=== PATIENT | female | born 1980 | race Caucasian/White ===

== ENCOUNTER 2023-06-09 18:15 | Emergency (ER) | payer SELFPAY ==
[2023-06-09] VITALS (16 sets, daily range): BP systolic 141–155; BP diastolic 105–110; PULSE 68–86; RESP 13–20; O2SAT 95–100
--- NOTE | ~2023-06-09 | XR_ITS ---
EXAMINATION: XR chest 1V portable DATE: 06/09/2023 20:48 INDICATION: Weakness. Decreased appetite. TECHNIQUE: A single frontal view of the chest was obtained. COMPARISON: None. FINDINGS: The chest demonstrates clear lungs without pneumonia, pleural effusion, or pneumothorax. Th e heart size is normal. IMPRESSION: 1. No acute cardiopulmonary disease. Reviewed, dictated and finalized at location E.
--- NOTE | ~2023-06-09 | CT_ITS ---
EXAMINATION: CT abdomen pelvis wo con DATE: 06/09/2023 22:52 INDICATION: Left lower quadrant pain TECHNIQUE: Computed tomography (CT) of the abdomen and pelvis was performed without intravenous contr ast. The dose-length product (DLP) was 1100.89 mGy-cm. Automated exposure control and iterative recon struction technique were employed. COMPARISON: None FINDINGS: Minimal dependent atelectasis is present in the lung bases. The heart size is normal. The l iver is diffusely low in attenuation when compared with the spleen, consistent with hepatic steatosis . There are changes of cholecystectomy. The spleen, pancreas, and adrenal glands are normal. The kidn eys are unremarkable. No pathologically enlarged abdominal or pelvic lymph nodes are identified. No f ree intraperitoneal gas or evidence of bowel obstruction. A moderate volume of colonic stool is prese nt. Changes of appendectomy are noted. There is mild lumbar spondylosis. IMPRESSION: 1. No CT correlate for the patient's symptoms. 2. Diffuse hepatic steatosis. Reviewed, dictated and finalized at location A.
--- NOTE | 2023-06-09 18:21 | ECG_ITS ---
Measurements Intervals [place] Rate: 80 P: 22 PA: 130 QRS: 13 QRSD: 89 T: 36 QT: 382 QTc: 441 Interpretive Statements SINUS RHYTHM NONSPECIFIC T-WAVE ABNORMALITY ABNORMAL ECG NO PREVIOUS ECG AVAILABLE FOR COMPARISON Electronically Signed On 06-10-2023 10:03:46 CDT by Derek Sutton M.D.
[2023-06-09] MEDS: ONDANSETRON INJ 4 MG/2 ML VIAL IV PUSH (21:08)
[2023-06-09] MEDS: HYDROmorphone HCL INJ (*CRX) 1 MG/ML SYR 0.5 MG IV PUSH (21:08)
[2023-06-09] MEDS: SODIUM CHLORIDE 0.9% IV 1,000 ML 999 ML IV CONT (21:11)
[2023-06-09 21:23] LABS: Basophils Absolute Auto 0.1 K/mm3 (0.0-0.1); Basophils Percent Auto 0.7 % (0.2-1.2); Eosinophils Absolute Auto 0.2 K/mm3 (0-0.3); Hematocrit 37.2 % (37.0-47.0); Hemoglobin 12.6 g/dL (12.0-15.0); Immature Granulocyte Absolute 0.02 K/mm3 (0.00-0.031); Immature Granulocyte Percent A 0.3 % (0-0.5); Lymphocytes Absolute Auto 3.06 K/mm3 (0.9-3.2); Lymphocytes Percent Auto 41.4 % (18.3-44.2); Mean Corpuscular HGB Conc 33.9 g/dl (32-36); Mean Corpuscular Hemoglobin 29.3 pg (26-34); Mean Corpuscular Volume 86.5 fl (80-100); Mean Platelet Volume 10.9 fl (7.4-10.4); Monocytes Absolute Auto 0.8 K/mm3 (0.1-0.6); Monocytes Percent Auto 11.1 % (2.6-8.5); Neutrophils Absolute Auto 3.2 K/mm3 (1.3-6.7); Neutrophils Percent Auto 43.5 % (45.5-73.1); Platelet Count Result 311 k/mm3 (150-375); White Blood Count 7.4 K/mm3 (4.5-10.0)
[2023-06-09 21:32] LABS: Lactic Acid Reflex 1.3 mmol/L (0.7-2.0)
[2023-06-09 21:33] LABS: Prothrombin Time 13.9 Seconds (11.1-14.7)
[2023-06-09 21:34] LABS: Alanine Aminotransferase 26 U/L (6-35); Albumin Level 4.9 g/dL (3.5-5.1); Alkaline Phosphatase 90 U/L (38-126); Anion Gap 13 mmol/L (8-16); Aspartate Amino Transferase 30 U/L (14-36); Bilirubin,Total 0.5 mg/dL (0.2-1.3); Blood Urea Nitrogen 11 mg/dL (7-17); Calcium 9.7 mg/dL (8.4-10.2); Carbon Dioxide 26 mmol/L (22-30); Chloride 102 mmol/L (98-107); Creatine Kinase 53 U/L (30-135); Estimated CRCL calculation 105 ml/min; Estimated Glomerular Filt Rate > 60; Glucose 103 mg/dL (65-110); Lipase 109 U/L (23-300); Magnesium 2.3 mg/dL (1.6-2.3); Partial Thromboplastin Time 27.7 SECONDS (22.3-36.8); Potassium 3.3 mmol/L (3.4-5.0); Sodium 141 mmol/L (137-145)
--- NOTE | 2023-06-09 21:46 | PC.NURSE ---
This RN got pt authorization to contact [facility] for pt record transfer per EDP Dr. Gonzales request.
[2023-06-09 21:58] LABS: Appearance Urine Cloudy (Clear); Bacteria Urine None Seen /hpf; Bilirubin Urine Negative (Negative); Color Urine Yellow (Yellow); Glucose Urine UA Negative (Negative); Ketones Urine Negative (Negative); Leukocyte Esterase Ur 2+ LEU/UL (Negative); Need Manual Microscopic Reviewed; Nitrate Urine Negative (Negative); Non Pathogenic Casts 0-2; Protein Urine 1+ mg/dL (Negative); Specific Grav Ur 1.027 (1.001-1.035); Squamous Epithelial Cell Urine Many /hpf (Few); Urobilinogen Urine 0.2 mg/dL (<2.0); WBC Urine 21-50 /hpf
--- NOTE | 2023-06-09 21:58 | ED.GENADULT ---
HPI - General Adult General Chief complaint: Weakness Stated complaint: weakness/ abd pain Time Seen by Provider: 06/09/23 19:50 History of Present Illness HPI narrative: This is a 43-year-old female presenting ED with chief complaint of abdominal pain. 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 She then left [facility] because a family member was having a child. Over the last 4 days since she left [facility] she says she has been having increasing abdominal pain, decreased appetite and generalized weakness. The pain does patient describes her pain as a cramping abdominal pain on the left side that is constant, worsening and feels like her colitis from last week. Patient has been taking Motrin and Tylenol with no relief. I asked the patient why she did not return to [facility] and she stated that she was not comfortable going back there after leaving [facility] and would rather pursue care here. Related Data Allergies Allergy/AdvReac Type Severity Reaction Status Date / Time Penicillins Allergy Hives Verified 06/09/23 21:07 [facility] Surgical History Surgical History Hx of cholecystectomy Exam Narrative: APPEARANCE: No apparent distress. Head: atraumatic. EYES: EOMI, NOSE: Atraumatic NECK: Trachea midline RESPIRATORY: No increased rate of breathing, clear to auscultation CARDIOVASCULAR: RRR, ABDOMINAL: Tender on the left side with no guarding or rebound, no CVA tenderness MUSCULOSKELETAl: No obvious deformities NEURO: Alert. Moving 4/4 extremities SKIN:: Warm, dry. Normal color PSYCHIATRIC: Normal affect Course Vital Signs Vital signs: Vital Signs Pulse Rate 79 06/09/23 18:20 Respiratory Rate 18 06/09/23 18:20 Blood Pressure 155/110 H 06/09/23 18:20 Pulse Oximetry 99 06/09/23 18:20 Pulse Rate 78 06/09/23 20:10 Respiratory Rate 20 06/09/23 20:08 Blood Pressure 155/107 H 06/09/23 20:08 Pulse Oximetry 100 06/09/23 20:08 Procedures EJ/Peripheral Line Arm R: EJ/Peripheral Line Date: 06/09/23 Time Out Performed: Yes Skin Cleansed in Sterile Fashion: Yes Ultrasound Guided: Yes Size (gauge): 20 IV Secured and Dressing Applied: Yes Patient Tolerated Procedure: well Additional Comments: 20 gauge IV placed by MD under ultrasound guidance due to diff IV access Medical Decision Making MDM Narrative Medical decision making narrative: -Presentation: 43-year-old female with recent history of colitis presenting for abdominal pain. 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 -External Chart Review: Review of requested records from [facility] of her CT scan, colonoscopy and EGD results. -Hx from independent Sources: friend at bedside -Independent interpretation of studies: laboratory studies normal. UA indicative of infection. Patient be discharged on Keflex. Viral swabs negative. Chest x-ray unremarkable. Independent EKG interpretation: Rhythm [sinus], Rate [80], [place] -[normal], [place] -[normal], QRS [narrow], QTC [normal], T waves -[negative for concerning inversions], ST Segments - [Negative for concerning elevations] Final interpretations: [Normal Sinus Rhythm] CT abdomen pelvis was delayed due to STAT RAD and patient got tired of waiting and decided she would like to leave and follow up outpatient. -Discussion of Management/Consultants: [facility] house designer and records. there was some confusion when requested the records from [facility] but eventually were able to obtain CT scan and colonoscopy results. -Dx tests considered but not ordered: none -Procedures: none -Interv
[2023-06-09 21:59] LABS: Add Urine Microscopic? YES
[2023-06-09 22:02] LABS: Influenza A QL RT-PCR Negative (Negative); Influenza B QL RT-PCR Negative (Negative); RSV RNA, RT-PCR Negative (Negative); SARS-CoV-2 RNA PCR Negative (Negative)
[2023-06-09 22:25] LABS: Amphetamine Screen Urine Negative (Negative); Barbiturate Screen Urine Negative (Negative); Benzodiazepines Screen Urine Negative (Negative); Cannabinoid Screen Urine Negative (Negative); Cocaine Screen Urine Negative (Negative); Methadone Screen Urine Negative (Negative); Opiate Screen Urine Negative (Negative); Phencyclidine Screen Urine Negative (Negative)
[2023-06-09 22:53] LABS: Beta HCG Quantitative < 2.39 mIU/ML
--- NOTE | 2023-06-09 23:43 | PC.NURSE ---
This RN attempted to get pt records from [facility] with consent from pt per EDP Dr. Gonzales. This RN spoke with Micheline the paper making machine operator at [facility] who stated that she did not have any records of the pt under that name, social security number or address. This RN relayed that information to EDP Dr. Gonzales. This RN then informed pt about no records being found. Pt then called [facility] and spoke with Micheline the paper making machine operator who stated she had information on the pt. This RN and EDP Dr. Gonzales talked to Micheline the paper making machine operator and requested her records to be sent to [facility] and we provided the paper making machine operator with the fax number. This RN waited 45 minutes and there were no records faxed to this ED. This RN called the main number to [facility] and spoke with Ashli guerrerosection housekeeper who was unaware of who that patient was. Ashli informed me and EDP Dr. Gonzales that she does have a pt under that name however, the address/ and social security number were wrong and did not match our records. This RN and registration confirmed with pt her social security number and her address along with her middle name. Pt stated she was unsure of her social security number. This information was relayed to EDP. Dr. Gonzales and Ashli guerrerosection housekeeper at [facility].
[2023-06-10] VITALS: PULSE 75; RESP 17; O2SAT 100
== END 2023-06-10 00:34 | disposition home or self-care (01) ==
PROVIDERS: Emergency Provider Emergency Medicine
DX: R10.9 Unspecified abdominal pain (principal); Z20.822 Contact with and (suspected) exposure to COVID-19; Z90.49 Acquired absence of other specified parts of digestive tract
CPT/HCPCS: 36415; 71045; 74176; 80053; 80307; 81001; 81025; 82550; 83605; 83690; 83735; 84702; 85025; 85610; 85730; 87086; 87147; 87181; 87186; 87637; 93005; 96374; 96375; 99284; J1170; J2405; J7030